=== PATIENT | male | born 1965 | race Asian ===

== ENCOUNTER 2017-06-26 01:40 | Emergency (ER) | payer OTHER ==
[~2017-06-26] VITALS: Ht 177.8 cm; Wt 74.8 kg
[2017-06-26 01:40] VITALS: BP_SYST 144
[2017-06-26 02:11] VITALS: BP_SYST 144
== END 2017-06-26 02:11 ==
LOC: SED 01:40
DX: Z04.1 Encounter for examination and observation following transport accident (principal)
CPT/HCPCS: 99283